=== PATIENT | female | born 1965 | race African-American/Black ===

== ENCOUNTER 2021-03-26 15:54 | Emergency (ER) | payer OTHER, SELFPAY ==
[2021-03-26 16:05] VITALS: BP 152/95; PULSE 74; RESP 16; TEMP 36.6; O2SAT 100
--- NOTE | 2021-03-26 17:10 | PC.NURSE ---
saw pt fully dressed walk out of ER and in to her car. Left property. Gait steady
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
== END 2021-03-26 17:24 | disposition left against medical advice (07) ==
PROVIDERS: Emergency Provider Nurse Practitioner
DX: R10.31 Right lower quadrant pain (principal); I10 Essential (primary) hypertension; J45.909 Unspecified asthma, uncomplicated
CPT/HCPCS: 99283